=== PATIENT | male | born 1990 | race African-American/Black ===

== ENCOUNTER 2018-01-03 10:06 | Emergency (ER) | payer MEDICAID ==
[2018-01-03 14:44] VITALS: BP 127/73
--- NOTE | 2018-01-04 19:37 | ED ---
Liam Barboza Thomas, scribed for Krish Jacobson MD on 01/03/18 at 1055 . GI/ HPI - HPI Summary HPI Summary: The patient is a 27 year old male complaining of diarrhea for the last five days. Each day, the patient has about three episodes of watery diarrhea. The patient also has intermittent crampy lower abdominal pain that is relieved by diarrhea. He denies nausea and vomiting. He denies recent antibiotics use. - History of Current Complaint Chief Complaint: EDAbdPain Time Seen by Provider: 01/03/18 10:30 Stated Complaint: DIARRHEA Hx Obtained From: Patient Onset/Duration: Started Days Ago - 5, Still Present Timing: Intermittent Severity: Moderate Pain Intensity: 0 Location of Pain: Other - lower abd Associated Signs and Symptoms: Positive: Other: - Diarrhea, crampy abd pain; NEGATIVE: nausea, vomiting Aggravating Factor(s): Nothing Alleviating Factor(s): Bowel Movements - Allergy/Home Medications Allergies/Adverse Reactions: Allergies Allergy/AdvReac Type Severity Reaction Status Date / Time No Known Allergies Allergy Verified 02/06/16 11:18 PMH/Surg Hx/FS Hx/Imm Hx Endocrine/Hematology History: Denies: Hx Anticoagulant Therapy, Hx Diabetes, Hx Thyroid Disease Cardiovascular History: Denies: Hx Congestive Heart Failure, Hx Deep Vein Thrombosis, Hx Hypertension , Hx Myocardial Infarction, Hx Pacemaker/ICD Respiratory History: Denies: Hx Asthma, Hx Chronic Obstructive Pulmonary Disease (COPD), Hx Lung Cancer GI History: Denies: Hx Gall Bladder Disease, Hx Gastrointestinal Bleed, Hx Ulcer, Hx Urosepsis History: Denies: Hx Kidney Stones, Hx Renal Disease Neurological History: Denies: Hx Dementia, Hx Seizures Psychiatric History: Denies: Hx Anxiety, Hx Depression, Hx Schizophrenia, Hx Bipolar Disorder, Hx Substance Abuse - Surgical History Surgery Procedure, Year, and Place: left lower leg and ankle repair after fracture - Immunization History Date of Tetanus Vaccine: <10 years Date of Influenza Vaccine: Fall 2012 Infectious Disease History: No Infectious Disease History: Denies: Hx Clostridium Difficile, Hx Hepatitis, Hx Human Immunodeficiency Virus (HIV), Hx Shingles, Hx Tuberculosis, Hx Known/Suspected VRE, Hx Known/ Suspected VRSA, History Other Infectious Disease, Traveled Outside the [place] in Last 30 Days - Family History Known Family History: Positive: Diabetes - Social History Alcohol Use: None Substance Use Type: Reports: None Smoking Status (MU): Light Every Day Tobacco Smoker Amount Used/How Often: ~ 1/2 ppd Length of Time of Smoking/Using Tobacco: started ~ age 13 Review of Systems Negative: Fever Positive: Abdominal Pain - crampy, Diarrhea. Negative: Vomiting, Nausea All Other Systems Reviewed And Are Negative: Yes Physical Exam - Summary Physical Exam Summary: Appearance: The patient is well-nourished in no acute distress and in no acute pain. Skin: The skin is warm and dry and skin color reflects adequate perfusion. HEENT: ~The head is normocephalic and atraumatic. The pupils are equal and reactive. The conjunctivae are clear and without drainage. ~Nares are patent and without drainage. Mouth reveals moist mucous membranes and the throat is without erythema and exudate. The external ears are intact. The ear canals are patent and without drainage. The tympanic membranes are intact. Neck: the neck is supple with full range of motion and non-tender. There are no carotid bruits. ~There is no neck vein distension. Respiratory: Chest is non-tender. ~Lungs are clear to auscultation and breath sounds are symmetrical and equal. Cardiovascular: Heart is regular rate and rhythm. ~There is no murmur or rub auscultated. ~~There is no peripheral edema and pulses are symmetrical and equal. Abdomen: The abdomen is soft and non-tender. ~There are normal bowel sounds heard in all four quadrants and there is no organomegaly palpated. Musculoskeletal: There is no back tenderness noted. ~Extremities are non-tender with full range of motion. ~There is good capillary refill. There is no peripheral edema or calf tenderness elicited. Neurological: Patient is alert and oriented to person, place and time. ~The patient has symmetrical motor strength in all four extremities. ~Cranial nerves are grossly intact. Deep tendon reflexes are symmetrical and equal in all four extremities. Psychiatric: The patient has an appropriate affect and does not exhibit any anxiety or depression. Triage Information Reviewed: Yes Vital Signs On Initial Exam: Initial Vitals Temp Pulse Resp BP Pulse Ox 98.9 F 66 16 143/66 98 01/03/18 10:16 01/03/18 10:16 01/03/18 10:16 01/03/18 10:16 01/03/18 10:16 Vital Signs Reviewed: Yes Diagnostics - Vital Signs Vital Signs Temp Pulse Resp BP Pulse Ox 01/03/18 10:30 67 134/79 98 01/03/18 10:28 70 98 01/03/18 10:26 142/82 01/03/18 10:16 98.9 F 66 16 143/66 98 - Laboratory Lab Statement: Any lab studies that have been ordered have been reviewed, and results considered in the medical decision making process. GIGU Course/Dx - Course Course Of Treatment: Mr. Griffith presented C/O three episodes of watery diarrhea a day for a couple days. He was unable to produce a stool here and his vitals were stable so I D/C'd him for symptomatic treatment. - Diagnoses Provider Diagnoses: Diarrhea Discharge - Discharge Plan Condition: Stable Disposition: HOME Prescriptions: Loperamide CAP* [Imodium CAP*] 2 mg PO Q4H PRN #10 cap PRN Reason: Diarrhea Patient Education Materials: Acute Diarrhea (ED) Forms: *Work Release Referrals: Teodoro Vargas MD [Primary Care Provider] - If Needed Additional Instructions: Follow up with Dr. Vargas as needed. Return to the emergency room for any new or worsening symptoms. The documentation as recorded by the Liam galloway Thomas accurately reflects the service I personally performed and the decisions made by , Krish Jacobson MD.
== END 2018-01-03 14:43 | disposition home or self-care (01) ==
LOC: ED 10:06
DX: R19.7 Diarrhea, unspecified (principal); R10.84 Generalized abdominal pain; F17.210 Nicotine dependence, cigarettes, uncomplicated
CPT/HCPCS: 99282

== ENCOUNTER 2020-07-19 11:04 | Observation (INO) ==
[~2020-07-19 11:04] MED LIST: Buffered Lidocaine 1% SYRIN 1 ml INTRADERM ONE; Lactated Ringers 1000 ml BAG 1,000 ML IV SCH
[2020-07-19] MEDS ORDERED: Famotidine IV 10 MG/ML 2 ml VIAL (20 mg) IV SLOW PU ONE (12:18)
[2020-07-19] MEDS ORDERED: Sodium Citrate/Citric Acid LIQ 15 ML UDC PO ONE (12:18)
[2020-07-19] MEDS ORDERED: Midazolam 5 mg/5 ml VIAL 1 mg/ml 5 ml VIAL (5 mg) ONE (12:23)
[2020-07-19] MEDS ORDERED: fentaNYL 250 mcg/5 ml 50 MCG/ML 5 ml VIAL (250 MCG) ONE (12:23)
[2020-07-19] MEDS ORDERED: Sodium Citrate/Citric Acid LIQ 15 ML UDC ONE (12:23)
[2020-07-19] MEDS ORDERED: ceFAZolin 2 GM PREMIX 2 GM/50 ML BAG ONE (12:24)
[2020-07-19] MEDS ORDERED: Famotidine IV 10 MG/ML 2 ml VIAL (20 mg) ONE (12:24)
[2020-07-19] MEDS ORDERED: Rocuronium 50 mg VIAL 10 mg/ml 5 ml VIAL (50 mg) ONE ×2 (12:27→13:54)
[2020-07-19] MEDS ORDERED: Lidocaine 2% PF 5 ML VIAL ONE ×2 (12:27→20:23)
[2020-07-19] MEDS ORDERED: Dexamethasone IV 4 MG/ML VIAL 1 ml VIAL ONE (12:29)
[2020-07-19] MEDS ORDERED: Phenylephrine 40 mcg/mL 10mL (400mcg) SYRINGE ONE (12:59)
[2020-07-19] MEDS ORDERED: Bupivacaine 0.5% SDV PF 30ML VIAL ONE (13:06)
[2020-07-19] MEDS ORDERED: Propofol 10 MG/ML 20 ML BTL ONE ×2 (13:43→14:13)
[2020-07-19] MEDS ORDERED: HYDROmorphone 1 MG/1 ML SYRINGE ONE ×2 (13:55→16:12)
[2020-07-19] MEDS ORDERED: Metoprolol Tartrate 5 mg VIAL 5 ml VIAL (1 mg/ml) ONE (14:04)
[2020-07-19] MEDS ORDERED: Sugammadex 500 MG/5 ML 5 ml VIAL IV PUSH ONE (14:10)
[2020-07-19] MEDS ORDERED: Ondansetron 4 mg VIAL 2 MG/ML 2 ml VIAL ONE ×2 (14:10→19:36)
[2020-07-19] MEDS ORDERED: Acetaminophen IV 1 GM/100ML 100 ML ONE (14:23)
[2020-07-19] MEDS ORDERED: Ondansetron 4 mg VIAL 2 MG/ML 2 ml VIAL IV PRN ×2 (14:26→19:04)
[2020-07-19] MEDS ORDERED: Naloxone 0.4 mg VIAL 0.4 mg/ml 1 ml VIAL IV PRN (14:26)
[2020-07-19] MEDS ORDERED: fentaNYL 100 mcg/2 ml 50 MCG/ML VIAL ONE (15:12)
[2020-07-19] MEDS: fentaNYL 100 mcg/2 ml 50 MCG/ML VIAL IV PRN ×4 (15:14→15:35)
[2020-07-19] MEDS: HYDROmorphone 1 MG/1 ML SYRINGE IV PRN ×3 (16:13→16:35)
[2020-07-19] MEDS ORDERED: Ondansetron ODT 4 mg TAB 4 MG TAB PO PRN (19:04)
[2020-07-19] MEDS ORDERED: Magnesium Hydroxide LIQ 30 ML UDC PO PRN (19:04)
[2020-07-19] MEDS ORDERED: diPHENhydraMINE IV 50 MG/ML 1 ml VIAL (BENADRYL) IV PRN (19:04)
[2020-07-19] MEDS ORDERED: diPHENhydraMINE 25 mg TAB PO PRN (19:04)
[2020-07-19] MEDS ORDERED: Morphine 2 MG/ML SYRINGE IV PRN (19:10)
[2020-07-19] MEDS ORDERED: Lactated Ringers 1000 ml BAG 1,000 ML IV SCH (20:00)
[2020-07-19] MEDS ORDERED: ROPIVACAINE 5 MG/ML 30 ML BTL (0.5%) ONE (20:24)
[2020-07-19] MEDS ORDERED: Ropivacaine (OR use only) 2 MG/ML 10 ML ONE (20:24)
[2020-07-19] MEDS ORDERED: Enalaprilat IV 1.25 mg/ml 1 ml VIAL (1.25 MG) IV PRN (20:36)
[2020-07-19] MEDS: ceFAZolin 1 GM ADVAN 1 GM in NS 0.9% 50 ML 50 ML IVPB SCH (23:13)
[2020-07-20] MEDS ORDERED: Nicotine GUM 4MG FRUIT FLAVOR PO PRN (00:04)
[2020-07-20] MEDS: ceFAZolin 1 GM ADVAN 1 GM in NS 0.9% 50 ML 50 ML IVPB SCH (06:25)
[2020-07-20 08:12] VITALS: BP 147/64
== END 2020-07-20 11:00 | disposition home or self-care (01) ==
LOC: SSU 11:04 → OR 11:04
PROVIDERS: ADMIT Orthopaedic Surgery; ATTEND Orthopaedic Surgery